=== PATIENT | female | born 1990 | race Caucasian/White ===

== ENCOUNTER 2017-07-15 21:59 | Emergency (ER) | payer OTHER ==
[2017-07-15 22:07] VITALS: BP 142/92; PULSE 99; RESP 18; TEMP 99.3; O2SAT 97
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
== END 2017-07-15 22:58 | disposition home or self-care (01) ==
LOC: EDUNIT#
DX: T54.2X1A Toxic effect of corrosive acids and acid-like substances, accidental (unintentional), initial encounter (principal); J45.909 Unspecified asthma, uncomplicated